=== PATIENT | female | born 1970 | race Hispanic/Latino ===

== ENCOUNTER 2023-02-20 06:29 | Emergency (ER) | payer BC, OTHER ==
[~2023-02-20] VITALS: Ht 152.4 cm; Wt 56.7 kg
[2023-02-20 06:55] LABS: RAPID GROUP A STREP negative (NEGATIVE)
[2023-02-20 07:05] LABS: COVID19 (SARS ANTIGEN RAPID) PRESUMPTIVE NEGATIVE (NEGATIVE); INFLUENZA TYPE A Negative For Type A (NEGATIVE); INFLUENZA TYPE B Negative For Type B (NEGATIVE)
[2023-02-20] MEDS ORDERED: KETOROLAC 60 MG VIAL (30MG/ML) IM ONE (08:00)
[2023-02-20 08:54] LABS: BASOPHILS # (AUTO) 0.04 K/uL (0.00-0.20); BASOPHILS % (AUTO) 0.5 % (0.0-5.0); EOSINOPHILS # (AUTO) 0.02 K/uL (0.00-0.70); EOSINOPHILS % (AUTO) 0.2 % (0.0-8.0); HEMATOCRIT 42.8 % (36-48); IMMATURE GRANULOCYTE ABSOLUTE 0.02 K/uL (0-1); LYMPHOCYTES # (AUTO) 0.9 K/uL (1.0-4.8); LYMPHOCYTES % (AUTO) 11.2 % (21.0-51.0); MEAN CORPUSCULAR HGB CONC 33.6 g/dL (32.0-36.0); MEAN CORPUSCULAR VOLUME 98.2 fL (79-99); MONOCYTES # (AUTO) 0.9 K/uL (0.1-1.0); MONOCYTES % (AUTO) 11.1 % (3.0-13.0); NEUTROPHILS # (AUTO) 6.4 K/uL (1.8-7.7); NEUTROPHILS % (AUTO) 76.8 % (40.0-77.0); PLATELET COUNT (AUTO) 237 K/uL (130-400); RED BLOOD CELL COUNT(AUTO) 4.36 MIL/uL (4.00-5.50); WHITE BLOOD COUNT (AUTO) 8.4 K/uL (4.8-10.8)
[2023-02-20 09:04] VITALS: BP 104/54; PULSE 75; RESP 17; O2SAT 98
[2023-02-20 09:14] LABS: POTASSIUM 4.7 mmol/L (3.5-5.1)
[2023-02-20 09:19] LABS: ALBUMIN 3.5 g/dL (3.5-5.0); BILIRUBIN,TOTAL 0.3 mg/dL (0.2-1.0)
[2023-02-20] MEDS ORDERED: AMOX-426 PO (10:04)
[2023-02-20] MEDS ORDERED: AMOX/CLAV 500/125MG TAB PO ONE (10:30)
== END 2023-02-20 10:29 | disposition home or self-care (01) ==
LOC: EDH 06:29
DX: J32.9 Chronic sinusitis, unspecified (principal); Z20.822 Contact with and (suspected) exposure to COVID-19
CPT/HCPCS: 99284; 87426; 80053; 85025; 87880; 87804 ×2; 36415; 96372; J1885